=== PATIENT | male | born 1990 | race Caucasian/White ===

== ENCOUNTER 2024-12-06 13:50 | Emergency (ER) | payer BC, SELFPAY ==
[2024-12-06] VITALS (52 sets, daily range): BP systolic 99–144; BP diastolic 60–93
[2024-12-06] MEDS: HALDOL 5 MG IM ×2 (14:38→14:42)
[2024-12-06] MEDS: ATIVAN 2 MG IM ×2 (14:38→14:42)
[2024-12-06] MEDS: KETAMINE HCL 50 MG IM (14:50)
--- NOTE | 2024-12-06 15:12 | CON.MD ---
Consultation - Medical
-
patient seen chart reviewed. discussed with dr adrian. this consult was done today december 06 2024. the patient is a 34 year old male. he was brought to on a petition filed by the police. 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
where the patient works. the patient was noted to geraldine 'pacing and yelling that he was going to 'kill him'' the officer had his hand on his tazer whereupon the patient is alleged to have said 'i don't want to get tazed.....shoot me...put your tazer
away and get your guns out.' ezequiel's father and provided further hx . the family had attempted to have ezequiel committed about two months ago when he had made suicidal threats the 302 was dismissed as hearsay but ezequiel voluntarily went to
[facility] for three days the next morning. he was placed on zoloft which he has not taken. he was then transferred to [facility] rehab where he remained for thirty days and was tx'ed around november 09. he has enaged in several drinking binges since
then once consuming a fifth of vodka and he had a bottle of listerine delivered a few nights ago and drank it in its entirety. patient was out cold last night presumably due to drinking and woke up to make suicidal threats to his . she called
her father in law whereupon patient headed over to his father's office. there are guns there . whether patient intended to try to get the guns is not clear but father cleared the office of personnel. the locks on the doors had been changed. father
called the police and ezequiel was found there and when the police located him he was holding a rock in his hand. they brought him to where he was agitated and out of control requiring restraints. he was given haldol 10 mg and ativan four mg but
was still very agitated to the degree that the entire bed was moving .for protection of himself and others he was given ketamine 50 mg whereupon he became calm. patient did not participate meaningfully in the interview except to vociferously deny
the allegations that he had made threats to hurt others and expressed suicidality himself.
past psych hx patient has hx of anxiety and depression. hospital as above. he was in therapy intermittently several months prior to the hosp at [facility]
fh dad w anx and depression two relatives w bipolar one committed suicide
substance abuse patient has been consuming etoh to excess for over a year. see above. most recently patient not drinking daily bult there have been at least three binges since dc from rehab on november 09. patient recently purchased krataom says he did
not use it the bottle i saw was unopened occasional cannabis
medical patient is healthy according to family
social lives w and two children one two years old and one ten months. 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
mse patient screaming loudly. pressured speech. will not engage in any meaningful conversation. out of control mood affect labile denies si insight judgment very much lacking.
r.o bipolar disorder with psychosis r.o intoxication ?etoh ?kratom
plan uphold 302 medical clearance search for a psych bed preferably dual dx bed when medically cleared. haldol and ativan prn agitation ecg done staff monitoring re safety.
--- NOTE | 2024-12-06 15:25 | ED.GENMED ---
History of Present Illness
General
Chief Complaint: Crisis Evaluation
Source: patient
Exam Limitations: altered mental status
Time Seen by Provider: 12/06/24 14:11
Nursing documentation reviewed up to this point in time: agreed with
History of Present Illness
History of Present Illness:
34-year-old male under 302 patient is agitated apparently drinking Listerine previously in rehab for alcohol using kratom here he is acutely agitated using profanity violent requiring physical and chemical restraints, apparently threatened to kill
his father, asked police to shoot him,
Past History
Social History
Alcohol: Binge drinker
Review of Systems
Review of Systems
Unable to obtain full review of systems at this time due to: due to acuity
Other source history: other (Agitated, police)
All Other Systems: Not applicable
Phy Exam
Physical Exam
Physical Exam:
Physical Exam
General: Manic agitated male diaphoretic using profanity
Neck: No tongue bite
Heart: Tachycardic
Lungs: no acute respiratory distress.
Neuro: Moves all extremities
Skin: no rash
Psychiatric: Manic agitated
Extremities: no edema.
Course
Orders/Labs/Results
Orders:
Orders
12/06/24
Electrocardiogram (*1) Stat
Comment: DONE EMR
12/06/24 14:29
Haloperidol Lactate [Haldol] 5 mg .ROUTE .STK-MED ONE
Lorazepam [Ativan] 2 mg .ROUTE .STK-MED ONE
12/06/24 14:35
Haloperidol Lactate [Haldol] 5 mg IM NOW STA
Lorazepam [Ativan] 2 mg IM NOW STA
12/06/24 14:38
1:1 Observation - Suicide/ Violent Behavior As Directed
Crisis Consult Urgent
Reason for Consult: 302
Restraints - Violent As Directed
Restraint Type-: Locked-4 point/4 rails
Apply From (date): 12/06/24
Apply from (time): 14:38
Remove (date): 12/06/24
Remove (time): 18:38
12/06/24 14:39
Haloperidol Lactate [Haldol] 5 mg IM NOW STA
Lorazepam [Ativan] 2 mg IM NOW STA
12/06/24 14:49
Ketamine [Ketamine HCl] 50 mg IM NOW STA
12/06/24 14:50
Ketamine [Ketamine HCl] 500 mg .ROUTE .STK-MED ONE
12/06/24 15:26
Lorazepam [Ativan] 2 mg PO Q4HPRN PRN
12/06/24 15:52
Acetaminophen Urgent
Alcohol Urgent
CPK [Creatine Phosphokinase] Urgent
Complete Blood Count/With Diff Urgent
Comprehensive Metabolic Panel Urgent
Salicylate Urgent
12/06/24 18:38
Restraints - Violent As Directed
Restraint Type-: Locked- L&R Wrist/4 rails
Locked- L&R Ankle/4rails
Apply From (date): 12/06/24
Apply from (time): 18:38
Remove (date): 12/06/24
Remove (time): 22:38
12/06/24 21:00
Urine Drug Abuse Screen Urgent
Date Specimen was Collected: 12/06/24
Time Specimen was Collected: 15:55
12/06/24 22:38
Restraints - Violent As Directed
Restraint Type-: Locked- L&R Wrist/4 rails
Locked- L&R Ankle/4rails
Apply From (date): 12/06/24
Apply from (time): 22:38
Remove (date): 12/07/24
Remove (time): 02:38
12/07/24 02:38
ED Special Safety Observation ONCE
Observation level: One to Two
Abnormal Lab Results
12/06/24
15:52
RBC 4.42 L 10^6/uL
(4.70-6.10)
MCH 31.4 H pg
(27.0-31.0)
MPV 11.1 H fL
(7.4-10.4)
Lymphocytes % 20.0 L %
(20.5-51.1)
Sodium 146 H mmol/L
(135-145)
Chloride 113 H mmol/L
(98-107)
Carbon Dioxide 18 L mmol/L
(22-30)
Creatine Kinase 218 H U/L
(55-170)
Salicylates < 1.0 L mg/dl
(2.0-20.0)
Acetaminophen < 10 L ug/ml
(10-30)
12/06/24 15:52
12/06/24 15:52
Vital Signs
Initial and Last Documented VS:
Initial Vital Signs
Temp Pulse Resp BP Pulse Ox
98.0 F 98 20 128/79 99
12/06/24 14:02 12/06/24 14:02 12/06/24 14:02 12/06/24 14:02 12/06/24 14:02
Last Documented Vital Signs
Temp Pulse Resp BP Pulse Ox
98.0 F 59 17 125/67 96
12/06/24 14:02 12/07/24 08:30 12/07/24 08:30 12/07/24 08:00 12/07/24 02:30
MDM/Problems Addressed
Differential Diagnosis Includes:
Acute viv bipolar acute intoxication
MDM/Problems Addressed:
Viv agitation
Chronic conditions affecting care:
Substance abuse alcohol
Acute Exacerbation and/or Progression of Chronic Illness:
Substance abuse alcohol
*Pulse Oximetry
SaO2: 95
Oxygen Mode of Delivery: Room air
Patient hypoxic: no
*Critical Care Note
Total Time (30-74mins, 75-104mins- exclusive of procedures): 35
Update Note
Update Note:
Update reviewed with nursing and psychiatry patient physically and chemically restrained for him and staff safety
4:48 PM labs noted we will push p.o. fluids when more awake
ED Attending Note
-
Portions of this chart may have been created with voice recognition software.� Occasional wrong word or��sound alike� substitutions may have occurred due to the inherent limitations of voice recognition software.
Discharge Plan
Departure
Patient Disposition: Psych Facility
Date of Disposition: 12/07/24
Time of Disposition: 09:46
Discharge Problem:
Behavior disturbance
Referrals:
UNKNOWN - PT NOT,INTERVIEWE [Family Provider]
Interventions
Interventions:
*Risk Screen - Suicide Last Done: 12/06/24 13:58
*General Assessment Last Done: 12/06/24 13:58
*Nursing Disposition Last Done: 12/07/24 10:42
ED-Psychological Assessment Last Done: 12/06/24 13:58
Discharge Date and Time
Discharge Date/Time: 12/07/24 10:42
Print Language: [id number]
[2024-12-06 15:59] LABS: Hematocrit 39.6 % (39.0-52.0); Hemoglobin 13.9 g/dL (13.0-18.0); Mean Corp Hgb Conc. 35.1 g/dL (33.0-37.0); Mean Corpuscular Volume 89.6 fL (80.0-94.0); Nucleated Red Blood Cells % 0 % (-); Platelet Count 182 10^3/uL (130-400); Red Cell Dist. Width 11.8 % (11.5-14.5)
[2024-12-06 16:34] LABS: ALT (SGPT) 36 U/L (0-50); AST (SGOT) 31 U/L (17-59); Acetaminophen < 10 ug/ml (10-30); Albumin 4.7 g/dl (3.5-5.0); Alkaline Phosphatase 45 U/L (38-126); Blood Urea Nitrogen 13 mg/dl (9-20); Calcium 9.5 mg/dl (8.4-10.2); Carbon Dioxide 18 mmol/L (22-30); Chloride 113 mmol/L (98-107); Glucose 93 mg/dl (70-99); Potassium 4.1 mmol/L (3.5-5.1); Salicylate < 1.0 mg/dl (2.0-20.0); Sodium 146 mmol/L (135-145); Total Protein 7.2 g/dl (6.3-8.2); eGFR > 60.00
[2024-12-07] VITALS (15 sets, daily range): BP systolic 125–148; BP diastolic 67–90
== END 2024-12-07 10:42 ==
LOC: EMR 13:50
PROVIDERS: EMERGENCY PHYSICIAN Emergency Medicine
DX: F91.9 Conduct disorder, unspecified (principal)
CPT/HCPCS: 99283; 96372; 80053; 80143; 80179; 82077; 82550; 85025; 93005